=== PATIENT | female | born 1970 | race Native Hawaiian/Other Pacific Islander ===

== ENCOUNTER 2020-04-14 17:35 | Emergency (ER) | payer OTHER ==
[~2020-04-14] VITALS: Ht 152.4 cm; Wt 71.7 kg
[2020-04-14 17:45] VITALS: BP 125/75
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
--- NOTE | 2020-04-14 18:05 | NUR ---
ER-PA AT BEDSIDE
--- NOTE | 2020-04-14 18:29 | NUR ---
RAD AT BEDSIDE
[2020-04-14] MEDS: KETOROLAC 30 MG/ML VIAL IM ONE (18:33)
--- NOTE | 2020-04-14 19:08 | NUR ---
REPORT GIVEN TO JANE SHINE FOR CONTINUITY OF CARE
--- NOTE | 2020-04-14 19:08 | NUR ---
REPORTED RECEIVED FROM BLAS SHINE
[2020-04-14 19:16] VITALS: BP 123/74
--- NOTE | 2020-04-14 19:16 | NUR ---
Patient discharged with v/s stable. Written and verbal after care instructions given and explained. Patient alert, oriented and verbalized understanding of instructions. Ambulatory with steady gait. All questions addressed prior to discharge. ID band removed. Patient advised to follow up with PMD. Rx of FLEXERIL AND MOTRIN given. Patient educated on indication of medication including possible reaction and side effects. Opportunity to ask questions provided and answered.
== END 2020-04-14 19:16 | disposition home or self-care (01) ==
LOC: MED 17:35
DX: S16.1XXA Strain of muscle, fascia and tendon at neck level, initial encounter (principal); S66.811A Strain of other specified muscles, fascia and tendons at wrist and hand level, right hand, initial encounter; M79.10 Myalgia, unspecified site; E78.00 Pure hypercholesterolemia, unspecified; Z90.49 Acquired absence of other specified parts of digestive tract; V49.88XA Car occupant (driver) (passenger) injured in other specified transport accidents, initial encounter; Y93.89 Activity, other specified; Y99.8 Other external cause status; Y92.89 Other specified places as the place of occurrence of the external cause
CPT/HCPCS: 29125; 73110; 96372; 99283; J1885